=== PATIENT | female | born 1985 | race African-American/Black ===

== ENCOUNTER 2018-09-18 09:44 | Emergency (ER) | payer SELFPAY ==
[~2018-09-18] VITALS: Ht 167.6 cm; Wt 82.0 kg
[2018-09-18] MEDS ORDERED: LIDOCAINE HCL/PF 1% 2ML VIAL INFIL ONE (12:30)
[2018-09-18] MEDS: LIDOCAINE HCL 1% 20ML VIAL (Pyxis) INJ INFIL NR ×2 (12:39→13:02)
[2018-09-18 13:12] VITALS: BP 148/80
== END 2018-09-18 13:13 | disposition home or self-care (01) ==
LOC: ER 10:23
DX: L02.212 Cutaneous abscess of back [any part, except buttock and flank] (principal); J45.909 Unspecified asthma, uncomplicated
CPT/HCPCS: 10060; 99283; J3490